=== PATIENT | male | born 1990 | race African-American/Black ===

== ENCOUNTER 2017-12-14 01:28 | Emergency (ER) | payer OTHER ==
[~2017-12-14] VITALS: Ht 188 cm; Wt 77.1 kg
[2017-12-14 01:28] VITALS: BP 123/86
[~2017-12-14 01:28] MED LIST: NKM
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
[2017-12-14 01:37] VITALS: BP 0/0
== END 2017-12-14 01:37 ==
LOC: EDBD 01:28 → EMR 01:35
DX: F10.929 Alcohol use, unspecified with intoxication, unspecified (principal)
CPT/HCPCS: 99283